=== PATIENT | male | born 1970 ===

== ENCOUNTER 2017-03-05 07:04 | Day surgery (SDC) | payer OTHER ==
[2017-03-05] VITALS (7 sets, daily range): BP systolic 120–139; BP diastolic 76–87; PULSE 54–82; TEMP 97.9–98
[~2017-03-05] VITALS: Ht 182.9 cm; Wt 96.0 kg
[2017-03-05] MEDS ORDERED: NORCO 325 MG-51 TAB PO (12:50)
== END 2017-03-05 13:50 | disposition home or self-care (01) ==
LOC: SDCO 07:04
DX: M23.221 Derangement of posterior horn of medial meniscus due to old tear or injury, right knee (principal); M23.8X1 Other internal derangements of right knee; M22.3X1 Other derangements of patella, right knee; M17.11 Unilateral primary osteoarthritis, right knee
CPT/HCPCS: J0690; J1885; J2270; J2405; J2704; J3010; J7120

== ENCOUNTER → 2023-11-16 | Outpatient (CLI) | payer BC ==
[~2023-11-16] MED LIST: NORCO 325 MG-51 TAB PO
== END ==
LOC: MHCPAIN 12:56
DX: M54.17 Radiculopathy, lumbosacral region (principal); M51.36 Other intervertebral disc degeneration, lumbar region
CPT/HCPCS: G0463

== ENCOUNTER → 2024-10-03 | Outpatient (CLI) | payer BC | LOC: MHCPAIN 13:55 | DX: M54.17 Radiculopathy, lumbosacral region (principal); Z98.890 Other specified postprocedural states | CPT/HCPCS: G0463 ==